=== PATIENT | male | born 1955 | race African-American/Black ===

== ENCOUNTER 2019-03-25 13:57 | Emergency (ER) | payer MEDICAID ==
[~2019-03-25] VITALS: Ht 170.2 cm; Wt 75.0 kg
[2019-03-25 17:26] LABS: EOSINOPHILS % 1.6 % (0.0-5.0); HEMATOCRIT. 50.7 % (42.0-52.0); HEMOGLOBIN. 17.9 g/dL (14.0-18.0); LYMPHOCYTES % 39.9 % (20.0-50.0); MEAN CORPUSCULAR HEMOGLOBIN 36.8 pg (28.0-32.0); MEAN CORPUSCULAR VOLUME 104.3 fL (80.0-94.0); MEAN PLATELET VOLUME 7.9 fl (7.4-10.4); MONOCYTES % 10.9 % (2.0-8.0); NEUTROPHILS % 46.6 % (40.0-76.0); PLATELET 195 x1000/uL (130-400); RED BLOOD CELL COUNT 4.86 mill/uL (4.7-6.1); RED CELL DISTRIBUTION WIDTH 14.8 % (11.6-14.6)
[2019-03-25 17:32] LABS: CHLORIDE 106 mEq/L (98-107)
[2019-03-25 17:36] LABS: ETHANOL BLOOD 33 mg/dL
[2019-03-25] MEDS ORDERED: SODIUM CHLORIDE 0.9% 1,000 ML IV ONE (18:17)
[2019-03-25] MEDS ORDERED: KETOROLAC 30MG/ML VIAL IV STA (18:17)
[2019-03-25] MEDS ORDERED: CLONIDINE 0.2MG TABLET PO ONE (18:45)
[2019-03-25 19:19] LABS: CLARITY URINE CLEAR (CLEAR); COLOR URINE DARK YELLOW (YELLOW); KETONES URINE TRACE (NEGATIVE); LEUKOCYTE ESTERASE URINE NEGATIVE (NEGATIVE); NITRITE URINE NEGATIVE (NEGATIVE); OCCULT BLOOD URINE NEGATIVE (NEGATIVE); PH URINE 5.5 (4.5-8.0); PROTEIN URINE 1+ (NEGATIVE); SPECIFIC GRAVITY URINE 1.022 (1.005-1.030)
[2019-03-25 19:31] LABS: *BENZODIAZEPINES SCREEN URINE NEGATIVE (NEGATIVE); *COCAINE SCREEN URINE NEGATIVE (NEGATIVE); METHADONE URINE SCREEN NEGATIVE (NEGATIVE); OPIATES URINE SCREEN NEGATIVE (NEGATIVE); PHENCYCLIDINE URINE SCREEN NEGATIVE (NEGATIVE)
[2019-03-25 19:32] LABS: *AMPHETAMINES SCREEN URINE NEGATIVE (NEGATIVE); *BARBITURATES SCREEN URINE NEGATIVE (NEGATIVE); CANNABINOID URINE SCREEN NEGATIVE (NEGATIVE)
[2019-03-25 21:50] VITALS: BP 189/103
== END 2019-03-25 21:50 | disposition left against medical advice (07) ==
LOC: ER 14:08
DX: R53.1 Weakness (principal); M25.562 Pain in left knee; M25.561 Pain in right knee; M79.652 Pain in left thigh; M79.651 Pain in right thigh; W18.39XA Other fall on same level, initial encounter; Y93.89 Activity, other specified; Y92.89 Other specified places as the place of occurrence of the external cause; Y99.8 Other external cause status; F17.290 Nicotine dependence, other tobacco product, uncomplicated; I10 Essential (primary) hypertension
CPT/HCPCS: 36415; 70450; 71045; 72192; 73521; 73560; 80053; 80305; 80320; 81003; 83880; 84484; 85025; 93005; 96374; 99284; J1885; J7030; G0480

== ENCOUNTER 2019-03-27 09:51 | Inpatient (IN) | payer MEDICAID ==
[~2019-03-27] VITALS: Ht 170.2 cm; Wt 65.8 kg
[2019-03-27 11:56] LABS: CHLORIDE 106 mEq/L (98-107)
[2019-03-27 11:58] LABS: BASOPHILS % 0.7 % (0.0-2.0); EOSINOPHILS % 0.6 % (0.0-5.0); HEMATOCRIT. 49.3 % (42.0-52.0); HEMOGLOBIN. 17.2 g/dL (14.0-18.0); LYMPHOCYTES % 25.2 % (20.0-50.0); MEAN CORPUSCULAR HEMOGLOBIN 36.3 pg (28.0-32.0); MEAN CORPUSCULAR VOLUME 104.1 fL (80.0-94.0); MEAN PLATELET VOLUME 8.5 fl (7.4-10.4); MONOCYTES % 10.3 % (2.0-8.0); NEUTROPHILS % 63.2 % (40.0-76.0); PLATELET 205 x1000/uL (130-400); RED BLOOD CELL COUNT 4.74 mill/uL (4.7-6.1); RED CELL DISTRIBUTION WIDTH 14.6 % (11.6-14.6)
[2019-03-27 12:12] LABS: INR 1.1; PARTIAL THROMBOPLASTIN TIME 26.9 sec (23.4-31.0); PROTHROMBIN TIME 10.8 sec (9.6-11.0)
[2019-03-27] MEDS ORDERED: ASPIRIN 81MG TABLET PO ONE (15:45)
[2019-03-27] MEDS ORDERED: DOCUSATE SODIUM 100MG CAPSULE PO PRN (18:00)
[2019-03-27] MEDS ORDERED: NITROGLYCERIN 0.4MG TABLET SL SL PRN (18:00)
[2019-03-27] MEDS ORDERED: IPRATROPIUM/ALBUTEROL 0.5-3(2.5)MG/3ML NEB NEB PRN (18:00)
[2019-03-27] MEDS ORDERED: POTASSIUM CHLORIDE 20MEQ TABLET SR PO NR (18:00)
[2019-03-27] MEDS ORDERED: MAGNESIUM/ALUMINUM HYDROXIDE/SIMETHICONE 30ML UDC PO PRN (18:00)
[2019-03-27] MEDS ORDERED: GUAIFENESIN 200MG/10ML SUGAR FREE UDC PO PRN (18:00)
[2019-03-27] MEDS ORDERED: ONDANSETRON HCL 4MG/2ML INJ IV PRN (18:00)
[2019-03-27] MEDS ORDERED: CLOPIDOGREL 75MG TABLET PO NR (18:13)
[2019-03-27] MEDS ORDERED: ENOXAPARIN 40MG/0.4ML SYR SUBCUT NR (18:14)
[2019-03-27] MEDS ORDERED: KETOROLAC 15MG/ML VIAL IV PRN (19:38)
[2019-03-27] MEDS: CLONIDINE 0.1MG TABLET PO PRN (19:45)
[2019-03-27 19:57] LABS: ETHANOL BLOOD < 10 mg/dL
[2019-03-27 19:59] LABS: TOTAL IRON BINDING CAPACITY 362 ug/dL (250-450)
[2019-03-27 20:00] LABS: LDL CHOLESTEROL 99 mg/dL (5-100)
[2019-03-27 20:01] LABS: HDL CHOLESTEROL 85 mg/dL (40-59)
[2019-03-27 20:35] LABS: FOLIC ACID (FOLATE) SERUM 5.9 ng/mL (>5.38)
[2019-03-27] MEDS ORDERED: NA PHOS,M-B/NA PHOS,DI-BA ENEMA 118ML PR PRN (21:00)
[2019-03-27] MEDS ORDERED: ZOLPIDEM TARTRATE 5MG TABLET PO PRN (21:00)
[2019-03-27 23:25] VITALS: BP 161/100
[2019-03-28] VITALS (8 sets, daily range): BP systolic 151–180; BP diastolic 81–100
[2019-03-28] MEDS: FAMOTIDINE 20MG TABLET PO SCH ×3 (02:02→20:41)
[2019-03-28 07:17] LABS: EOSINOPHILS % 1.8 % (0.0-5.0); HEMATOCRIT. 47.8 % (42.0-52.0); HEMOGLOBIN. 16.7 g/dL (14.0-18.0); LYMPHOCYTES % 42.7 % (20.0-50.0); MEAN CORPUSCULAR HEMOGLOBIN 36.6 pg (28.0-32.0); MEAN CORPUSCULAR VOLUME 104.5 fL (80.0-94.0); MEAN PLATELET VOLUME 8.3 fl (7.4-10.4); MONOCYTES % 12.2 % (2.0-8.0); NEUTROPHILS % 42.3 % (40.0-76.0); PLATELET 182 x1000/uL (130-400); RED BLOOD CELL COUNT 4.58 mill/uL (4.7-6.1); RED CELL DISTRIBUTION WIDTH 14.4 % (11.6-14.6)
[2019-03-28 07:28] LABS: CHLORIDE 106 mEq/L (98-107)
[2019-03-28] MEDS: ENOXAPARIN 40MG/0.4ML SYR SUBCUT SCH (09:04)
[2019-03-28] MEDS: CLOPIDOGREL 75MG TABLET PO SCH (09:04)
[2019-03-28 09:08] LABS: *AMPHETAMINES SCREEN URINE NEGATIVE (NEGATIVE); *BARBITURATES SCREEN URINE NEGATIVE (NEGATIVE); *BENZODIAZEPINES SCREEN URINE NEGATIVE (NEGATIVE); *COCAINE SCREEN URINE NEGATIVE (NEGATIVE); METHADONE URINE SCREEN NEGATIVE (NEGATIVE); OPIATES URINE SCREEN NEGATIVE (NEGATIVE)
[2019-03-28 09:10] LABS: CANNABINOID URINE SCREEN NEGATIVE (NEGATIVE); PHENCYCLIDINE URINE SCREEN NEGATIVE (NEGATIVE)
[2019-03-28] MEDS: AMLODIPINE 10MG TABLET PO SCH (17:09)
[2019-03-28] MEDS: ATORVASTATIN CALCIUM 10MG TABLET PO SCH (20:41)
[2019-03-28] MEDS: ACETAMINOPHEN 325MG TABLET PO PRN (20:42)
[2019-03-28] MEDS: CLONIDINE 0.1MG TABLET PO PRN (20:44)
[2019-03-29] VITALS: BP 174/87
[2019-03-29 04:00] VITALS: BP 164/101
[2019-03-29 08:00] VITALS: BP 157/85
[2019-03-29] MEDS: ENOXAPARIN 40MG/0.4ML SYR SUBCUT SCH (08:21)
[2019-03-29] MEDS: CLOPIDOGREL 75MG TABLET PO SCH (08:21)
[2019-03-29] MEDS: FAMOTIDINE 20MG TABLET PO SCH ×2 (08:21→21:26)
[2019-03-29] MEDS: AMLODIPINE 10MG TABLET PO SCH (08:21)
[2019-03-29] MEDS: LISINOPRIL 20MG TABLET PO SCH (11:46)
[2019-03-29 11:57] VITALS: BP 140/80
[2019-03-29 16:00] VITALS: BP 119/74
[2019-03-29] MEDS: ACETAMINOPHEN 325MG TABLET PO PRN (17:43)
[2019-03-29 20:00] VITALS: BP 127/71
[2019-03-29] MEDS: ATORVASTATIN CALCIUM 10MG TABLET PO SCH (21:26)
[2019-03-30] VITALS (7 sets, daily range): BP systolic 105–174; BP diastolic 64–80
[2019-03-30] MEDS: FAMOTIDINE 20MG TABLET PO SCH ×2 (08:29→22:37)
[2019-03-30] MEDS: LISINOPRIL 20MG TABLET PO SCH (08:30)
[2019-03-30] MEDS: ENOXAPARIN 40MG/0.4ML SYR SUBCUT SCH (08:30)
[2019-03-30] MEDS: CLOPIDOGREL 75MG TABLET PO SCH (08:30)
[2019-03-30] MEDS: AMLODIPINE 10MG TABLET PO SCH (08:31)
[2019-03-30] MEDS: CLONIDINE 0.1MG TABLET PO PRN (12:44)
[2019-03-30] MEDS: ATORVASTATIN CALCIUM 10MG TABLET PO SCH (22:37)
[2019-03-31] VITALS: BP 134/77
[2019-03-31 04:00] VITALS: BP 140/72
[2019-03-31 08:00] VITALS: BP 138/79
[2019-03-31] MEDS: AMLODIPINE 10MG TABLET PO SCH (09:32)
[2019-03-31] MEDS: FAMOTIDINE 20MG TABLET PO SCH (09:32)
[2019-03-31] MEDS: CLOPIDOGREL 75MG TABLET PO SCH (09:32)
[2019-03-31] MEDS: LISINOPRIL 20MG TABLET PO SCH (09:32)
[2019-03-31] MEDS: ENOXAPARIN 40MG/0.4ML SYR SUBCUT SCH (09:33)
[2019-03-31 12:00] VITALS: BP 148/85
[2019-03-31 12:39] VITALS: BP 148/85
== END 2019-03-31 13:21 | disposition home health service (06) | DRG 45 ==
LOC: ER 09:51 → 5WST 16:47 → ENRESERV 21:53
PROVIDERS: ADMIT Internal Medicine; ATTEND Internal Medicine
DX: I63.81 Other cerebral infarction due to occlusion or stenosis of small artery (principal); G81.91 Hemiplegia, unspecified affecting right dominant side; E87.6 Hypokalemia; I10 Essential (primary) hypertension; F10.10 Alcohol abuse, uncomplicated; W18.39XA Other fall on same level, initial encounter; Y93.89 Activity, other specified; Y92.89 Other specified places as the place of occurrence of the external cause; Y99.8 Other external cause status
CPT/HCPCS: 36415; 70544; 70551; 71045; 80053; 80061; 80305; 80320; 82607; 82746; 83036; 83540; 83550; 83880; 84484; 85025; 93005; 93306; 93880; 93970; 97162; 97166; 99285; J1650; G0480

== ENCOUNTER 2020-09-06 14:16 | Emergency (ER) | payer MEDICAID ==
[~2020-09-06] VITALS: Ht 170.2 cm; Wt 70.0 kg
[2020-09-06 14:40] VITALS: BP 144/84
[2020-09-07] MEDS ORDERED: DOXY100T2 MT (12:28)
[2020-09-07] MEDS ORDERED: CEPH500T MT (12:28)
== END 2020-09-06 16:39 | disposition left against medical advice (07) ==
LOC: ER 14:16
DX: Z53.21 Procedure and treatment not carried out due to patient leaving prior to being seen by health care provider (principal)

== ENCOUNTER 2020-09-07 10:29 | Emergency (ER) | payer MEDICAID ==
[~2020-09-07] VITALS: Ht 170.2 cm; Wt 73.0 kg
[2020-09-07] MEDS ORDERED: DOXY100T2 MT (12:28)
[2020-09-07] MEDS ORDERED: CEPH500T MT (12:28)
[2020-09-07] MEDS ORDERED: TETANUS, DIPHTHERIA, PERTUSSIS VAC/PF 0.5ML (>7YR OLD) IM ONE (12:30)
[2020-09-07 13:00] VITALS: BP 161/74
== END 2020-09-08 13:00 | disposition home or self-care (01) ==
LOC: ER 10:58
DX: L03.116 Cellulitis of left lower limb (principal); L02.612 Cutaneous abscess of left foot; Z86.73 Personal history of transient ischemic attack (TIA), and cerebral infarction without residual deficits; Z79.899 Other long term (current) drug therapy
CPT/HCPCS: 73630; 90471; 90715; 99283